=== PATIENT | female | born 1945 | race Two or more races ===

== ENCOUNTER 2017-04-28 19:02 | Emergency (ER) | payer OTHER ==
[~2017-04-28] VITALS: Ht 149.9 cm; Wt 44.5 kg
[~2017-04-28 19:02] MED LIST: BISOPROLOL FUMAR5 MG; BISOPROLOL FUMAR5 MG PO; CIPRO 500 MG PO; CIPRO500 MG PO; CIPRO750 MG PO; CLONAZEPAM1 MG PO; DICY20TA PO; DOCUSATE SODIU100 MG PO; FLAGYL500MG PO; GILTUSS TR TAB1 EACH PO; GUMSOL SPRAY30 ML MM; METHYLPRED4 MG/DOSE- PO; NEURONTIN PO; ULTRACET PO; VOLTAREM 50 MG PO; ZANTAC300 MG PO; ZESTRIL5 MG; ZESTRIL5 MG PO; ZOCOR20 MG
[2017-04-28] MEDS ORDERED: DICLOFENAC POTA50 MG (20:04)
[2017-04-28] MEDS ORDERED: CEFUROXIME500 MG (20:05)
== END 2017-04-29 | disposition home or self-care (01) ==
LOC: ER 19:02
DX: R51 Headache (principal)

== ENCOUNTER 2017-05-14 10:53 | Outpatient (CLI) | payer OTHER ==
[~2017-05-14 10:53] MED LIST changes: +CEFUROXIME500 MG; +DICLOFENAC POTA50 MG
== END 2017-05-14 11:04 | disposition home or self-care (01) ==
LOC: LAB 10:53
DX: N39.0 Urinary tract infection, site not specified (principal)

== ENCOUNTER 2017-05-14 11:57 | Outpatient (CLI) | payer OTHER | END 2017-05-14 15:12 | disposition home or self-care (01) | LOC: SONOGRAMA 11:57 | DX: N39.0 Urinary tract infection, site not specified (principal) ==

== ENCOUNTER → 2017-06-02 | Emergency (ER) | payer OTHER ==
[~2017-06-02] VITALS: Ht 144.8 cm; Wt 40.8 kg
== END | disposition home or self-care (01) ==
LOC: ER 15:19
DX: M94.0 Chondrocostal junction syndrome [Tietze] (principal); R07.9 Chest pain, unspecified

== ENCOUNTER 2017-06-11 10:50 | Outpatient (CLI) | payer OTHER | END 2017-06-11 11:07 | disposition home or self-care (01) | LOC: NUCLEAR 10:50 | DX: I67.2 Cerebral atherosclerosis (principal) ==

== ENCOUNTER 2017-06-24 10:18 | Outpatient (CLI) | payer OTHER | END 2017-06-24 15:25 | disposition home or self-care (01) | LOC: MRI 10:18 | DX: M50.020 Cervical disc disorder with myelopathy, mid-cervical region, unspecified level (principal) | CPT/HCPCS: 72141 ==

== ENCOUNTER → 2017-06-24 | Outpatient (CLI) | payer OTHER | END | disposition home or self-care (01) | LOC: PPH VACUNA 12:06 | DX: Z23 Encounter for immunization (principal) ==

== ENCOUNTER → 2017-07-02 | Outpatient (CLI) | payer OTHER | END | disposition home or self-care (01) | LOC: PPHC 14:41 | DX: Z00.8 Encounter for other general examination (principal) ==

== ENCOUNTER 2017-08-01 10:52 | Outpatient (CLI) | payer OTHER | END 2017-08-01 11:09 | disposition home or self-care (01) | LOC: TOM 10:52 | DX: R10.9 Unspecified abdominal pain (principal) ==

== ENCOUNTER 2017-08-07 14:34 | Outpatient (CLI) | payer OTHER | END 2017-08-07 15:27 | disposition home or self-care (01) | LOC: LAB 14:34 | DX: N39.0 Urinary tract infection, site not specified (principal); R82.79 Other abnormal findings on microbiological examination of urine ==

== ENCOUNTER → 2017-08-07 | Outpatient (CLI) | payer OTHER | END | disposition home or self-care (01) | LOC: PPHC 13:10 | DX: N39.0 Urinary tract infection, site not specified (principal) ==

== ENCOUNTER 2017-08-10 15:20 | Emergency (ER) | payer OTHER ==
[~2017-08-10] VITALS: Ht 149.9 cm; Wt 40.8 kg
[2017-08-10] MEDS ORDERED: MACROBID 100 M100 MG PO (15:56)
== END 2017-08-10 17:38 | disposition home or self-care (01) ==
LOC: ER 15:20
DX: N39.0 Urinary tract infection, site not specified (principal)

== ENCOUNTER 2017-09-12 12:37 | Outpatient (CLI) | payer OTHER ==
[~2017-09-12 12:37] MED LIST changes: +MACROBID 100 M100 MG PO
== END 2017-09-12 15:58 | disposition home or self-care (01) ==
LOC: LAB 12:37
DX: N39.0 Urinary tract infection, site not specified (principal); R82.79 Other abnormal findings on microbiological examination of urine

== ENCOUNTER 2018-04-17 11:16 | Outpatient (CLI) | payer OTHER | END 2018-04-17 12:12 | disposition home or self-care (01) | LOC: LAB 11:16 | DX: D64.89 Other specified anemias (principal); I10 Essential (primary) hypertension; E03.8 Other specified hypothyroidism; E78.49 Other hyperlipidemia; N39.0 Urinary tract infection, site not specified; M81.0 Age-related osteoporosis without current pathological fracture; N28.89 Other specified disorders of kidney and ureter; R30.0 Dysuria; J98.8 Other specified respiratory disorders; B96.29 Other Escherichia coli [E. coli] as the cause of diseases classified elsewhere ==

== ENCOUNTER 2018-04-19 09:22 | Outpatient (CLI) | payer OTHER | END 2018-04-19 09:41 | disposition home or self-care (01) | LOC: LAB 09:22 | DX: D64.89 Other specified anemias (principal); I10 Essential (primary) hypertension; E03.8 Other specified hypothyroidism; E78.49 Other hyperlipidemia; N39.0 Urinary tract infection, site not specified; M81.0 Age-related osteoporosis without current pathological fracture; N28.89 Other specified disorders of kidney and ureter; R30.0 Dysuria; J98.8 Other specified respiratory disorders ==

== ENCOUNTER 2018-06-04 13:36 | Outpatient (CLI) | payer OTHER | END 2018-06-04 13:40 | disposition home or self-care (01) | LOC: LAB 13:36 | DX: N39.0 Urinary tract infection, site not specified (principal); B96.29 Other Escherichia coli [E. coli] as the cause of diseases classified elsewhere ==

== ENCOUNTER 2018-09-22 16:18 | Outpatient (CLI) | payer OTHER | END 2018-09-22 16:49 | disposition home or self-care (01) | LOC: RAD 16:18 | DX: M25.561 Pain in right knee (principal); M25.562 Pain in left knee ==

== ENCOUNTER 2018-09-25 10:36 | Outpatient (CLI) | payer OTHER | END 2018-09-25 10:43 | disposition home or self-care (01) | LOC: MRI 10:36 | DX: M25.561 Pain in right knee (principal) | CPT/HCPCS: 73721 ==